=== PATIENT | male | born 1965 | race Caucasian/White ===

== ENCOUNTER 2018-02-25 00:02 | Emergency (ER) | payer MEDICAID ==
[2018-02-25 02:34] LABS: ADD MAN DIFF? NO
[2018-02-25 02:36] LABS: WHITE BLOOD COUNT 6.4 10^3/ul (4.8-10.8)
[2018-02-25 02:36] LABS: BASOPHILS % 0.5 % (0.0-2.0); EOSINOPHILS % 0.5 % (0.0-7.0); HEMATOCRIT 46.3 % (42.0-52.0); HEMOGLOBIN 16.2 g/dl (14.0-18.0); LYMPHOCYTES # 2.1 10^3/ul (0.8-2.9); LYMPHOCYTES % 32.2 % (15.0-51.0); MEAN CORPUSCULAR HEMOGLOBIN 28.7 pg (29.0-33.0); MEAN CORPUSCULAR VOLUME 82.1 fl (82.0-101.0); MEAN PLATELET VOLUME 9.7 fl (7.4-10.4); MONOCYTE # 0.7 10^3/ul (0.3-0.9); MONOCYTES % 10.5 % (0.0-11.0); NEUTROPHIL # 3.6 10^3/ul (1.6-7.5); PLATELET COUNT 229 10^3/UL (140-415); RED BLOOD COUNT 5.64 10^6/ul (4.70-6.10); RED CELL DISTRIBUTION WIDTH 12.1 % (11.5-14.5)
[2018-02-25] MEDS: MECLIZINE 12.5 MG TAB PO (02:39)
[2018-02-25 03:06] LABS: ANION GAP 11 (5-13); BLOOD UREA NITROGEN 18 mg/dl (7-20); CALCIUM 9.7 mg/dl (8.4-10.2); CARBON DIOXIDE 29 mmol/L (21-31); CHLORIDE 100 mmol/L (97-110); CREATININE 0.82 mg/dl (0.61-1.24); Estimated GFR > 60 mL/min (>60); GLUCOSE 134 mg/dl (70-220); POTASSIUM 3.9 mmol/L (3.5-5.1); SODIUM 140 mmol/L (135-144)
[2018-02-25] MEDS ORDERED: PANTOPRAZOLE (EC) 40 MG TAB PO (05:30)
== END 2018-02-25 05:15 | disposition home or self-care (01) ==
LOC: E/R 00:02
DX: R42 Dizziness and giddiness (principal); R40.2142 Coma scale, eyes open, spontaneous, at arrival to emergency department; R40.2252 Coma scale, best verbal response, oriented, at arrival to emergency department; R40.2362 Coma scale, best motor response, obeys commands, at arrival to emergency department; I10 Essential (primary) hypertension
CPT/HCPCS: 80048; 85025; 93005; 99284-25

== ENCOUNTER 2018-04-06 13:57 | Observation (INO) | payer MEDICAID ==
[2018-04-06 14:49] LABS: ADD MAN DIFF? NO
[2018-04-06] MEDS: LORAZEPAM 2 MG INJ IV (14:51)
[2018-04-06] MEDS: SOD CHLORIDE 0.9% 1,000 ML IV (14:51)
[2018-04-06] MEDS: ASPIRIN 81 MG TAB PO (14:51)
[2018-04-06] MEDS: NITROGLYCERIN (SL) 0.4 MG TAB SL (14:51)
[2018-04-06 14:54] LABS: WHITE BLOOD COUNT 4.9 10^3/ul (4.8-10.8)
[2018-04-06 14:54] LABS: BASOPHILS % 0.6 % (0.0-2.0); EOSINOPHILS % 0.4 % (0.0-7.0); HEMATOCRIT 42.5 % (42.0-52.0); LYMPHOCYTES # 1.6 10^3/ul (0.8-2.9); MEAN CORPUSCULAR HEMOGLOBIN 28.8 pg (29.0-33.0); MEAN CORPUSCULAR HGB CONC 35.3 g/dl (32.0-37.0); MEAN CORPUSCULAR VOLUME 81.6 fl (82.0-101.0); MEAN PLATELET VOLUME 9.8 fl (7.4-10.4); MONOCYTE # 0.5 10^3/ul (0.3-0.9); MONOCYTES % 10.5 % (0.0-11.0); NEUTROPHIL # 2.8 10^3/ul (1.6-7.5); NEUTROPHILS % 56.3 % (39.0-77.0); PLATELET COUNT 225 10^3/UL (140-415); RED BLOOD COUNT 5.21 10^6/ul (4.70-6.10)
[2018-04-06] MEDS: NITROGLYCERIN 2% 1 GM OINT PKT TD (14:58)
[2018-04-06 15:13] LABS: ANION GAP 13 (5-13); BLOOD UREA NITROGEN 10 mg/dl (7-20); CALCIUM 9.3 mg/dl (8.4-10.2); CARBON DIOXIDE 29 mmol/L (21-31); CHLORIDE 97 mmol/L (97-110); CREATININE 0.77 mg/dl (0.61-1.24); Estimated GFR > 60 mL/min (>60); GLUCOSE 106 mg/dl (70-220); POTASSIUM 3.5 mmol/L (3.5-5.1); SODIUM 139 mmol/L (135-144)
[2018-04-06 15:24] LABS: TROPONIN-I < 0.012 ng/ml (0.000-0.120)
[2018-04-06] MEDS ORDERED: MAGNESIUM HYDROXIDE 30ML CUP PO (16:30)
[2018-04-06] MEDS ORDERED: NACL 0.9% 3 ML SYG IV (16:30)
[2018-04-06] MEDS ORDERED: DOCUSATE SODIUM 100 MG CAP PO (16:30)
[2018-04-06] MEDS ORDERED: ACETAMINOPHEN 325 MG TAB PO ×2 (16:30)
[2018-04-06] MEDS ORDERED: ALBUTEROL/IPRATROPIUM (NEB) 3 ML AMP HHN (16:30)
[2018-04-06] MEDS ORDERED: hydrALAzine 20 MG INJ IV (16:30)
[2018-04-06] MEDS ORDERED: NITROGLYCERIN (SL) 0.4 MG TAB SL (16:30)
[2018-04-06] MEDS ORDERED: morphine 2 MG INJ IV (16:30)
[2018-04-06] MEDS ORDERED: ONDANSETRON 4 MG INJ IV ×2 (16:30)
[2018-04-06] MEDS ORDERED: LORAZEPAM 2 MG INJ IV (16:30)
[2018-04-06] MEDS: IOHEXOL 100 ML (16:38)
[2018-04-06] MEDS: SOD CHLORIDE 0.9% 100 ML (16:38)
[2018-04-06] MEDS: IOHEXOL 350MG/ML 50 ML BTL (16:38)
[2018-04-06 17:10] LABS: FREE T4 (FREE THYROXINE) 1.25 ng/dl (0.64-1.79)
[2018-04-06] MEDS: SOD CHLORIDE 0.45% 1,000 ML IV (17:46)
[2018-04-06 21:25] LABS: CREATINE KINASE 98 IU/L (23-200)
[2018-04-06 21:40] LABS: CK INDEX 1.3; CK-MB 1.24 ng/ml (0.0-2.4); TROPONIN-I < 0.012 ng/ml (0.000-0.120)
[2018-04-06] MEDS: HEPARIN 5,000 UNIT/1 ML VIAL SC (21:57)
[2018-04-07 02:54] LABS: CREATINE KINASE 84 IU/L (23-200)
[2018-04-07 03:04] LABS: CK INDEX 1.2; CK-MB 1.01 ng/ml (0.0-2.4); TROPONIN-I < 0.012 ng/ml (0.000-0.120)
[2018-04-07] MEDS: HYDROCODONE/APAP (5/325) TAB PO ×2 (04:01→09:30)
[2018-04-07 05:30] LABS: ADD MAN DIFF? NO
[2018-04-07] MEDS: SOD CHLORIDE 0.45% 1,000 ML IV (05:33)
[2018-04-07 05:43] LABS: WHITE BLOOD COUNT 3.5 10^3/ul (4.8-10.8)
[2018-04-07 05:43] LABS: BASOPHILS % 0.6 % (0.0-2.0); EOSINOPHILS # 0.1 10^3/ul (0.0-0.5); EOSINOPHILS % 1.7 % (0.0-7.0); HEMATOCRIT 40.6 % (42.0-52.0); HEMOGLOBIN 13.9 g/dl (14.0-18.0); LYMPHOCYTES # 1.4 10^3/ul (0.8-2.9); LYMPHOCYTES % 39.9 % (15.0-51.0); MEAN CORPUSCULAR HEMOGLOBIN 28.4 pg (29.0-33.0); MEAN CORPUSCULAR HGB CONC 34.2 g/dl (32.0-37.0); MEAN PLATELET VOLUME 10.3 fl (7.4-10.4); MONOCYTE # 0.4 10^3/ul (0.3-0.9); MONOCYTES % 12.6 % (0.0-11.0); NEUTROPHIL # 1.6 10^3/ul (1.6-7.5); NEUTROPHILS % 44.9 % (39.0-77.0); PLATELET COUNT 199 10^3/UL (140-415); RED BLOOD COUNT 4.89 10^6/ul (4.70-6.10); RED CELL DISTRIBUTION WIDTH 12.2 % (11.5-14.5)
[2018-04-07 06:06] LABS: CHOL/HDL RATIO 4.1 RATIO; CHOLESTEROL 130 mg/dl (100-200); HDL CHOLESTEROL 31 mg/dl (28-71); LDL CHOLESTEROL,CALCULATED 75 mg/dl; MAGNESIUM 1.8 mg/dl (1.7-2.5); TRIGLYCERIDES 121 mg/dl (0-149)
[2018-04-07 06:06] LABS: PHOSPHORUS 3.7 mg/dl (2.5-4.9)
[2018-04-07 06:08] LABS: HEMOGLOBIN A1C 5.3 % (0-5.9)
[2018-04-07 06:17] LABS: ANION GAP 11 (5-13); BLOOD UREA NITROGEN 8 mg/dl (7-20); CALCIUM 8.9 mg/dl (8.4-10.2); CARBON DIOXIDE 29 mmol/L (21-31); CHLORIDE 100 mmol/L (97-110); CREATININE 0.71 mg/dl (0.61-1.24); Estimated GFR > 60 mL/min (>60); GLUCOSE 98 mg/dl (70-220); POTASSIUM 3.8 mmol/L (3.5-5.1); SODIUM 140 mmol/L (135-144)
[2018-04-07] MEDS: ASPIRIN (EC) 325 MG TAB PO (09:30)
[2018-04-07] MEDS: INFLUENZA VIRUS VACCINE 0.5 ML (DISPENSING) IM* (09:31)
[2018-04-07] MEDS: HEPARIN 5,000 UNIT/1 ML VIAL SC (09:43)
== END 2018-04-07 17:17 | disposition home or self-care (01) ==
LOC: E/R 13:57 → 6WM 16:04
DX: R07.9 Chest pain, unspecified (principal); I10 Essential (primary) hypertension
CPT/HCPCS: 36415; 71045; 71275; 74177; 80048; 80061; 82550; 82553; 83036; 83735; 84100; 84439; 84443; 84484; 85025; 90686; 93005; 93306; 96374; 99285-25; G0378